=== PATIENT | female | born 1950 | race Hispanic/Latino ===

== ENCOUNTER 2022-03-18 07:22 | Day surgery (SDC) | payer MEDICARE ==
[2022-03-18] MEDS ORDERED: LIDOCAINE 1%/EPINEPHRINE 1:100,000 VIAL (20 ML) INFILTRATI ONE (08:13)
[2022-03-18] MEDS ORDERED: ceFAZolin/Water 2 GM/20 ML 0 GM/0 ML SYRINGE IV ONE (08:13)
[2022-03-18 08:22] LABS: Blood Urea Nitrogen 8 mg/dL (7-17); Hemolysis Index 3
[2022-03-18 08:27] LABS: BUN/Creatinine Ratio 13
[2022-03-18 08:37] LABS: INR 0.92 (0.87-1.13); Partial Thromboplastin Time 31.5 Sec. (24.2-36.6)
[2022-03-18] MEDS: SODIUM CHLORIDE 0.9% 500 ML 500 ML IV SCH ×2 (08:46→09:50)
[2022-03-18] MEDS ORDERED: HEPARIN/NS 5000 UNIT/500ML 500 ML IR ONE (09:33)
[2022-03-18] MEDS ORDERED: HEPARIN 10,000 UNITS/10 ML VIAL ONE (09:33)
--- NOTE | 2022-03-18 10:24 | Short Stay Summary ---
Short Stay Documentation Date of service: 03/18/22 Narrative H&P: 72-year-old female with peripheral vascular disease and nonhealing wound in the right leg with tremors who presents for CT angiogram of the abdomen pelvis. She has had infiltration of lines multiple times and has not been able to get her CT angiogram of the abdomen pelvis with runoff. - History Principal diagnosis: PVD with nonhealing ulceration of the right lower extremity H&P: obtained from office Past Medical History: COPD, hypertension, PVD, other (Neurologic issues) Past Surgical History: Other (No relevant prior surgical history) Social history: other (Former smoker) - Allergies and Medications Current Medications: Allergies No Known Allergies Allergy (Unverified 03/18/22 07:48) Home Medications Medication Instructions Recorded Confirmed Last Taken Type Losartan Potassium 100 mg PO DAILY 03/18/22 03/18/22 03/17/22 History Nebivolol HCl 20 mg PO DAILY 03/18/22 03/18/22 03/17/22 History clonazePAM [Klonopin] 1 mg PO BID 03/18/22 03/18/22 03/18/22 05:00 History dilTIAZem HCL [Tiadylt ER] 240 mg PO DAILY 03/18/22 03/18/22 03/17/22 History hydrALAZINE [Apresoline] 25 mg PO DAILY 03/18/22 03/18/22 03/17/22 History Active Medications Sodium Chloride (Nacl 0.9% 500 Ml) 500 mls @ 50 mls/hr IV DIRECT KENZIE Stop: 03/18/22 20:00 Last Admin: 03/18/22 08:46 Dose: 50 mls/hr - Physical exam General appearance: no acute distress Lungs: Normal air movement Heart: Regular rate Gastrointestinal: normal Extremities: abnormal (Right lower extremity nonhealing wound) - Brief post op/procedure progress note Date of procedure: 03/18/22 Pre-op diagnosis: Right lower extremity nonhealing ulceration with PVD requiring IV access Post-op diagnosis: same Procedure: Ultrasound-guided access of the right internal jugular vein Fluoroscopic guided placement of a PICC line in the right internal jugular vein Anesthesia: local Surgeon: YAIR GUPTA Condition: stable - Hospital course Hospital course: Patient tolerated the procedure well. No immediate postprocedural complications. After CT angiogram, line can be removed and pressure can be held until hemostasis achieved. - Disposition Condition at discharge: Stable Disposition: 01 HOME / SELF CARE / HOMELESS - Discharge Diagnoses (1) Atherosclerosis of right lower extremity with ulceration Status: Acute (2) COPD (chronic obstructive pulmonary disease) Status: Acute (3) Hypertension Status: Acute (4) Former smoker Status: Acute Short Stay Discharge Plan Activity: advance as tolerated Weight Bearing Status: Weight Bear as Tolerated Diet: regular Wound: keep clean and dry, change dressing (Daily Band-Aids/dressing until puncture site healed.) Follow up with: LEONOR MÉNDEZ MD [Primary Care Provider] - 7 Days
--- NOTE | 2022-03-18 10:34 | Operative Report ---
Operative Report Operative Report: EXAM: 1. Ultrasound-guided access of the right internal jugular vein. 2. Fluoroscopic guided placement of a 5 [place] PICC line in the right internal jugular vein. DATE: 03/18/2022 LEATHER WHITENER: YAIR GUPTA MD INDICATION: Nonhealing wound of the right lower extremity requiring CT angiogram of the abdomen and pelvis with runoff with multiple prior infiltrations. Patient has right iliac artery or aortoiliac artery occlusion or stenosis. Needs further evaluation. MEDICATIONS: Please see nursing report for full details. DEVICES: 5 [place] PICC line. CONTRAST: None. PROCEDURE: The risk, benefits, and alternatives were discussed with the patient; written informed consent was obtained. The patient was transported from the stretcher onto the fluoroscopy table in stable condition. The right neck was prepped and draped in sterile fashion. Ultrasound was used to evaluate the right internal jugular vein which was patent. Under direct ultrasound guidance, the right internal jugular vein was accessed with a 21-gauge micropuncture needle. 0.018 inch wire was passed into the IVC. Needle was exchanged for a a dilator and subsequently a 5 [place] sheath. 5 [place] PICC line was then advanced through the peel-away sheath and passed into the cavoatrial junction. The PICC line was then StatLock to the neck. Biopatch applied. Sterile dressing applied. Patient tolerated the procedure well. No immediate postprocedural complications. FINDINGS: The PICC line flushed and aspirated without issue. Tip of the catheter is in the cavoatrial junction. IMPRESSION: Successful placement of a right internal jugular PICC line.
[2022-03-18] MEDS ORDERED: HYDROcodone/ACETAMINOPHEN 5-325 MG TAB PO ONE (11:00)
[2022-03-18 11:56] VITALS: BP 135/64
--- NOTE | 2022-03-18 12:24 | Cat Scan Report ---
CTA ABDOMEN, PELVIS, AND LOWER EXTREMITIES WITH CONTRAST INDICATION: athersclerosis of [place] arteries of extremities. TECHNIQUE: Axial CT images were obtained through the abdomen, pelvis and lower extremities after injection of 10 0 cc Omnipaque 350 IV contrast. 3 plane MIP reconstructions were produced. All CT scans at this [facility] ion are performed using CT dose reduction for ALARA by means of automated exposure control. COMPARISON: None available. FINDINGS: CTA ABDOMEN: Abdominal Aorta: Severe calcified and noncalcified plaque is present throughout the aorta without sig nificant obstruction. No aneurysm or dissection. Celiac Artery: No significant abnormality. Superior Mesenteric Artery: Severely obstructive calcified and noncalcified plaque is seen along most of the main portion of the vessel with normal caliber of the vessel noted just before its bifurcatio n. Right Renal Artery: Mild nonobstructive calcified and noncalcified plaque is seen at the vessel origi n. No other significant abnormality. Left Renal Artery: Mild calcification without significant obstruction is seen at the vessel origin. N o other significant abnormality. Inferior Mesenteric Artery: Mild nonobstructive calcification is seen without other significant abnor malities. CTA PELVIS: RIGHT: - Common Iliac Artery: There is mild nonobstructive calcified and noncalcified plaque. No other signi ficant abnormality. - Internal Iliac Artery: Severe calcification is noted with probable distal high-grade obstruction. N o other significant abnormality. - External Iliac Artery: Occluded without distal reconstitution of flow. LEFT: - Common Iliac Artery: There is mild nonobstructive calcified and noncalcified plaque. No other signi ficant abnormality. - Internal Iliac Artery: Severe calcification is noted with probable distal high-grade obstruction. N o other significant abnormality. - External Iliac Artery: Mild calcified and noncalcified plaque is seen resulting in multifocal mild obstruction. No other significant abnormality. CTA LOWER EXTREMITIES: RIGHT LOWER EXTREMITY: - Common Femoral Artery: Supplied by collaterals and normal in caliber without significant atheroscle rosis. - Superficial Femoral Artery: Occluded at its origin with continued occlusion through the distal thir d of the thigh where there is reconstitution of flow on image 506 of series 2 via a collateral. The r emainder of the vessel is normal in caliber. - Profunda Femoral Artery: No significant abnormality. - Popliteal Artery: No significant abnormality. - Anterior Tibial Artery: Moderate calcification is noted with probable mild obstruction. The vessel remains patent to the foot, continuing as a patent dorsalis pedis artery. - Tibioperoneal Trunk: Occluded. - Posterior Tibial Artery: Occluded. - Peroneal Artery: Occluded. - Ankle runoff: One vessel. Multiple small collateral vessels are present throughout the right lower extremity. LEFT LOWER EXTREMITY: - Common Femoral Artery: No significant abnormality. - Superficial Femoral Artery: Occluded at its origin with distal reconstitution of flow along the dis greg third of the thigh via a collateral. Multifocal moderate calcification is seen along the remainin g course of the vessel with associated mild obstruction. - Profunda Femoral Artery: No significant abnormality. - Popliteal Artery: No significant abnormality. - Anterior Tibial Artery: Dense calcification is seen near the vessel origin resulting in moderate/se socrates obstruction. The majority of the vessel appears normal in caliber with the vessel remained paten t to the foot and continuing as a patent dorsalis pedis artery. - Tibioperoneal Trunk: Calcification is noted throughout most of the tibioperoneal trunk resulting in moderate obstruction. - Posterior Tibial Artery: Briefly patent at its origin with subsequent occlusion without distal isi nstitution of flow. - Peroneal Artery: No significant abnormality. - Ankle runoff: 2 vessel. Multiple small collateral vessels are present throughout the left lower extremity. NONTARGET STRUCTURES: CHEST: Moderate coronary artery calcification is seen without other significant abnormalities. ABDOMEN:No significant abnormality. PELVIS:No significant abnormality. LOWER EXTREMITIES:No significant abnormality. SKELETAL: No acute findings. The bones are demineralized. There is an unremarkable appearing left hip arthroplasty. There is a chronic-appearing fracture of the left inferior pubic ramus. ADDITIONAL FINDINGS: None. IMPRESSION: 1. 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 2. Severe right lower extremity arterial disease including occlusion of the SFA, tibioperoneal trunk, posterior tibial and peroneal arteries with single vessel runoff to the right foot. 3. Severe left lower extremity arterial disease including occlusion of the SFA and posterior tibial a rtery with two-vessel runoff to the left foot. 4. Additional findings as above. Signer Name: Himanshu Malloy MD Signed: 03/18/2022 12:20 PM Workstation Name: [id number]
== END 2022-03-18 07:23 | disposition home or self-care (01) ==
LOC: CATHLABREC 07:22
PROVIDERS: ATTEND Radiology Diagnostic Radiology
DX: Z45.2 Encounter for adjustment and management of vascular access device (principal); I70.213 Atherosclerosis of native arteries of extremities with intermittent claudication, bilateral legs; J44.9 Chronic obstructive pulmonary disease, unspecified; I10 Essential (primary) hypertension; Z79.899 Other long term (current) drug therapy; Z90.710 Acquired absence of both cervix and uterus; Z98.891 History of uterine scar from previous surgery; Z82.5 Family history of asthma and other chronic lower respiratory diseases; Z82.49 Family history of ischemic heart disease and other diseases of the circulatory system
CPT/HCPCS: 36415; 36573; 75635; 80048; 85610; 85730; C1751; J1644; J3490; J7040; Q9967; J0690